=== PATIENT | female | born 1975 ===

== ENCOUNTER 2017-09-04 10:02 | Emergency (ER) | payer OTHER ==
[2017-09-04 10:12] VITALS: O2SAT 100
[2017-09-04] MEDS ORDERED: Sodium Chloride 0.9% 1,000 ML IV ONE (10:42)
--- NOTE | 2017-09-04 10:53 | RAD ---
HISTORY: r/o infiltrate COMPARISON: No prior. TECHNIQUE: Chest PA and lateral FINDINGS: LUNGS: No active pulmonary disease. PLEURA: No significant pleural effusion identified. No pneumothorax apparent. CARDIOVASCULAR: Normal. OSSEOUS STRUCTURES: No significant abnormalities. VISUALIZED UPPER ABDOMEN: Normal. OTHER FINDINGS: None. IMPRESSION: No active disease.
[2017-09-04] MEDS ORDERED: Sodium Chloride 0.9% 1,000 ML ONE (11:18)
[2017-09-04 11:22] LABS: SQUAMOUS EPITHIAL 1 /hpf (0-5); URINE BILIRUBIN NEGATIVE (NEGATIVE); URINE BLOOD NEGATIVE (NEGATIVE); URINE CLARITY Clear (Clear); URINE COLOR Yellow (YELLOW); URINE GLUCOSE (UA) NORMAL (Normal); URINE LEUKOCYTE ESTERASE NEG Leu/uL (Negative); URINE PROTEIN NEGATIVE (NEGATIVE); URINE UROBILINOGEN NORMAL mg/dL (0.2-1.0)
[2017-09-04 11:24] LABS: BASO % 0.5 % (0.0-2.0); EOS # 0.4 K/uL (0.0-0.7); EOS % 5.6 % (0.0-4.0); HEMOGLOBIN 12.1 g/dL (11.0-16.0); LYMPH # 2.2 K/uL (1.0-4.3); LYMPH % 33.4 % (20.0-40.0); MEAN CELL VOLUME 91.2 fL (81.0-99.0); MEAN CORPUSCULAR HEMOGLOBIN 30.2 pg (27.0-31.0); MEAN CORPUSCULAR HGB CONC 33.1 g/dL (33.0-37.0); MEAN PLATELET VOLUME 9.3 fL (7.2-11.7); MONO # 0.8 K/uL (0.0-0.8); NEUT # 3.1 K/uL (1.8-7.0); NEUT % 47.5 % (50.0-75.0); NRBC % 0.1 % (0.0-2.0); RBC 4.02 Mil/uL (3.80-5.20); WHITE BLOOD COUNT 6.5 K/uL (4.8-10.8)
[2017-09-04 11:33] LABS: ALB/GLOB RATIO 1.1 (1.0-2.1); ALBUMIN 3.7 g/dL (3.5-5.0); ALT/SGPT 18 U/L (9-52); AST/SGOT 22 U/L (14-36); BLOOD UREA NITROGEN 12 mg/dL (7-17); CALCIUM 8.4 mg/dl (8.6-10.4); GFR AFRICAN-AMERICAN > 60; GFR NON-AFRICAN AMERICAN > 60
[2017-09-04 12:26] VITALS: BP 110/76; PULSE 77; RESP 17; TEMP 97.7
--- NOTE | 2017-09-04 13:43 | C.PDOC ---
History Of Present Illness 42 y/o female presents to ED with complaints of dry cough consistent with sharp chest pain "for couple of days". Patient reports mild dizziness and denies fever , neck stiffness, headache, sob, nausea, vomiting or any other complaints at this time. Chief Complaint (Nursing): Cough, Cold, Congestion History Per: Patient History/Exam Limitations: no limitations Onset/Duration Of Symptoms: Days Current Symptoms Are (Timing): Still Present Past Medical History Reviewed: Historical Data, Nursing Documentation, Vital Signs Vital Signs: Last Vital Signs Temp 97.7 F 09/04/17 12:21 Pulse 77 09/04/17 12:21 Resp 17 09/04/17 12:21 BP 110/76 09/04/17 12:21 Pulse Ox 100 09/04/17 13:49 - Medical History PMH: No Chronic Diseases Surgical History: No Surg Hx Family History: States: No Known Family Hx - Social History Hx Alcohol Use: No Hx Substance Use: No - Immunization History Hx Tetanus Toxoid Vaccination: No Hx Influenza Vaccination: No Hx Pneumococcal Vaccination: No Review Of Systems Constitutional: Negative for: Fever, Chills Cardiovascular: Positive for: Chest Pain Respiratory: Positive for: Cough. Negative for: Shortness of Breath Gastrointestinal: Negative for: Nausea, Vomiting Physical Exam - Physical Exam Appears: Non-toxic, No Acute Distress Skin: Normal Color, Warm, Dry, No Rash Head: Atraumatic, Normacephalic Eye(s): bilateral: Normal Inspection Throat: Normal, No Erythema, No Exudate Chest: Symmetrical Cardiovascular: Rhythm Regular Respiratory: Normal Breath Sounds, No Rales, No Rhonchi, No Wheezing Gastrointestinal/Abdominal: Soft, No Tenderness, No Guarding, No Rebound Extremity: Normal ROM, No Pedal Edema, Capillary Refill (<2 seconds) Neurological/Psych: Oriented x3, Normal Speech ED Course And Treatment - Laboratory Results Result Diagrams: 09/04/17 11:15 09/04/17 11:15 ECG: Interpreted By Me, Viewed By Me ECG Rhythm: Sinus Rhythm, R BBB (incomplete) Rate From EC (bpm) O2 Sat by Pulse Oximetry: 100 (RA) Pulse Ox Interpretation: Normal Progress Note: On re evaluation patient feels better, d/c with prescriptions and follow up with clinic. Disposition - Disposition Referrals: [facility] [Outside] [facility] [Outside] Disposition: HOME/ ROUTINE Disposition Time: 11:40 Condition: GOOD Additional Instructions: Thank you for letting us take care of you today. The emergency medical care you received today was directed at your acute symptoms. If you were prescribed any medication, please fill it and take as directed. It may take several days for your symptoms to resolve. Return to the Emergency Department if your symptoms worsen, do not improve, or if you have any other problems. Please contact your doctor or call one of the physicians/clinics you have been referred to that are listed on the Patient Visit Information form that is included in your discharge packet. Bring any paperwork you were given at discharge with you along with any medications you are taking to your follow up visit. Our treatment cannot replace ongoing medical care by a primary care provider (PCP) outside of the emergency department. Thank you for allowing the [facility] team to be part of your care today. Take all your medication as prescribed everyday. Follow up with the clinic in 2-3 days for re-evaluation and further management. Scott por dejarnos atenderlo hoy. La atencin mdica de emergencia que recibi hoy estaba dirigida a mayuri sntomas agudos. Si le prescribieron algn medicamento, llnelo y tome segn las indicaciones. Mayuri sntomas pueden tardar varios wellington en resolverse. Regrese al Departamento de Emergencia si mayuri s ntomas empeoran, no mejoran o si tiene algn otro problema. Comunquese con fallon mdico o llame a maximo de los mdicos / clnicas a los que monterroso sido referido que figura en el formulario de Informacin de visita del paciente que se incluye en fallon paquete de trevon. Traiga todos los documentos que recibi al momento del trevon junto con los medicamentos que est tomando en fallon visita de seguimiento. Nuestro tratamiento no puede reemplazar la atencin mdica en curso por parte de un proveedor de atencin primaria (PCP) fuera del departamento de emergencias. Scott por permitir que el equipo de [facility] sea parte de fallon cuidado hoy. [place] todos mayuri medicamentos segn lo prescrito todos los wellington. Margaret un seguimiento con la clnica en 2-3 wellington para julio nueva evaluacin y ms administracin. Prescriptions: Meclizine [Meclizine*] 25 mg PO Q6 PRN #20 tab PRN Reason: Dizziness Instructions: Vertigo (a Type of Dizziness) (DC), Upper Respiratory Infection ( ED) Forms: Gen Discharge Inst Bulgarian Print Language: CAMBODIAN - Clinical Impression Clinical Impression: Viral disease - Scribe Statement The provider has reviewed the documentation as recorded by the Scribe Jazlyn West All medical record entries made by the Scribe were at my direction and personally dictated by me. I have reviewed the chart and agree that the record accurately reflects my personal performance of the history, physical exam, medical decision making, and the department course for this patient. I have also personally directed, reviewed, and agree with the discharge instructions and disposition.
--- NOTE | 2017-09-07 10:44 | CARD ---
APPROVED REPORT EKG Measurement Heart [id number] <Conclusion> Normal sinus rhythm Left axis deviation Incomplete right bundle branch block Abnormal ECG
== END 2017-09-04 13:00 | disposition home or self-care (01) ==
LOC: C.ER 10:02
DX: B34.9 Viral infection, unspecified (principal)
CPT/HCPCS: 71046; 80053; 81001; 84484; 85025; 87086; 93005; 96361; 96374; 99285; J2765; J7040

== ENCOUNTER 2017-12-02 11:23 | Emergency (ER) | payer OTHER ==
[2017-12-02 11:34] VITALS: BP 118/76; PULSE 81; RESP 20; TEMP 98; O2SAT 100
[2017-12-02] MEDS ORDERED: Tdap Vaccine 0.5 ml Vial (10-64 yrs) IM ONE ×2 (11:49→11:57)
[2017-12-02] MEDS ORDERED: Lidocaine 1% Inj (20ml) INFIL ONE (11:49)
[2017-12-02] MEDS ORDERED: Bacitracin 500 Units/gm Oint Foilpak UD TOP ONE (11:50)
[2017-12-02] MEDS ORDERED: Bacitracin 500 Units/gm Oint Foilpak UD ONE (11:56)
[2017-12-02] MEDS ORDERED: Lidocaine Hydrochloride 10 ML INJ ONE (11:56)
--- NOTE | 2017-12-02 13:15 | C.PDOC ---
History Of Present Illness 42yo female, comes to ER for evaluation of a laceration to her left palm, sustained while she was attempting to cut into a thick skinned melon or squash. Patient states she is unsure of her tetanus vaccination status. Otherwise, she denies any numbness, tingling, other injuries, difficulty in moving her fingers. Time Seen by Provider: 12/02/17 11:44 Chief Complaint (Nursing): Abnormal Skin Integrity History Per: Patient History/Exam Limitations: no limitations Onset/Duration Of Symptoms: Hrs Current Symptoms Are (Timing): Still Present Location Of Injury: Left: Hand, Anterior: Hand Quality Of Symptoms: Painful Additional History Per: Patient Past Medical History Reviewed: Historical Data, Nursing Documentation, Vital Signs Vital Signs: Last Vital Signs Temp 98 F 12/02/17 11:32 Pulse 81 12/02/17 11:32 Resp 20 12/02/17 11:32 BP 118/76 12/02/17 11:32 Pulse Ox 100 12/02/17 15:00 - Medical History PMH: No Chronic Diseases Surgical History: No Surg Hx Family History: States: No Known Family Hx - Social History Hx Alcohol Use: No Hx Substance Use: No - Immunization History Hx Tetanus Toxoid Vaccination: No Hx Influenza Vaccination: No Hx Pneumococcal Vaccination: No Review Of Systems Musculoskeletal: Positive for: Hand Pain (laceration to left hypothenar area) Neurological: Negative for: Weakness, Numbness Physical Exam - Physical Exam Appears: Non-toxic Skin: Normal Color Head: Normacephalic Eye(s): bilateral: Normal Inspection Neck: Supple Chest: Symmetrical Cardiovascular: Rhythm Regular Respiratory: Normal Breath Sounds Extremity: Normal ROM (FROM of all digits on left hand), Capillary Refill (< 2 seconds all digits on left hand), Other (left hypothenar eminence with a 5cm curved laceration; +active bleeding, + swelling +hematoma.) Neurological/Psych: Oriented x3, Normal Motor, Normal Sensation ED Course And Treatment O2 Sat by Pulse Oximetry: 100 (RA) Pulse Ox Interpretation: Normal Laceration - Laceration Repair left hand Wound Length (In cm): 5 Description Of Wound: Linear, Irregular Anesthesia: Lidocaine 1% Wound Examination: Irrigated With Saline, No FB With Wound Exploration, No Tendon Injury With Wound Exploration Wound Closure: Suture (#13) Suture Technique And Material Used: Interrupted (4-0 ethilon) Wound Complexity: Intermediate Medical Decision Making Medical Decision Making: Impression: Laceration Plan: -- Laceration repaired using simple interrupted sutures. -- Tetanus booster 0.5ml IM -- Kefflex 500mg PO -- Tylenol 650 mg PO Wound cleaned and bacitracin applied; sterile dressing applied and patient placed in a sling. Patient instructed on wound care and is stable upon discharge home. Disposition Counseled Patient/Family Regarding: Diagnosis, Need For Followup, Rx Given - Disposition Disposition: HOME/ ROUTINE Disposition Time: 13:16 Condition: IMPROVED Additional Instructions: Por favor, mantenga la mano elevada siempre que sea posible. Lebam Tylenol para el dolor y complete antibiticos. El fro aparecePlease keep hand elevated whenever possible. Take Tylenol for pain and complete antibioitcs. Cold ocmpresses several tinmes a day over bandages. Change bandage tomorrowe- wash and dry gently with soap; apply bacitracin. Return to ER for any signs of infection such as redness, worse swelling, pus from wound or other concerns. Suture removal in 10 days. varias veces al da sobre los vendajes. Cambie el vendaje para el pelo; lvelo y squelo suavemente con jabn; aplicar bacitracin. Regrese a la levon de emergencias para detectar cualquier signo de infeccin, lucas enrojecimiento, peor hinchazn, pus de la herida u otras preocupaciones. Eliminacin de sutura en 10 wellington. Prescriptions: Acetaminophen [Tylenol 325mg tab] 650 mg PO Q4 #50 tab Bacitracin OINT 1 applic TOP BID #1 tube Cephalexin [cephalexin] 500 mg PO Q6 #28 cap Instructions: Laceration Repair With Stitches (DC) Forms: Gen Discharge Inst Yi, [employer] (Yi) Print Language: POLISH - Clinical Impression Clinical Impression: Laceration of left palm - PA / ROTARY SLICING MACHINE OPERATOR / Resident Statement MD/DO has reviewed & agrees with the documentation as recorded. - Scribe Statement The provider has reviewed the documentation as recorded by the Scribe (Almaz Jenkins) Provider Attestation: All medical record entries made by the Scribe were at my direction and personally dictated by me. I have reviewed the chart and agree that the record accurately reflects my personal performance of the history, physical exam, medical decision making, and the department course for this patient. I have also personally directed, reviewed, and agree with the discharge instructions and disposition.
== END 2017-12-02 13:28 | disposition home or self-care (01) ==
LOC: C.ER 11:23
DX: S61.412A Laceration without foreign body of left hand, initial encounter (principal); W26.0XXA Contact with knife, initial encounter; Y93.G1 Activity, food preparation and clean up; Y92.89 Other specified places as the place of occurrence of the external cause; Z23 Encounter for immunization

== ENCOUNTER 2017-12-11 06:46 | Emergency (ER) | payer OTHER ==
[2017-12-11 07:01] VITALS: BP 110/71; PULSE 72; RESP 20; O2SAT 100
--- NOTE | 2017-12-11 07:11 | C.PDOC ---
History Of Present Illness 42 yo female no prior hx , presents for eval of left palm wound. pt sustained lac 10 days. ago. pt states she was unsure if wound is infected. pt states she has been not taking antibiotcs as prescribed, only "taking when she feels like it". pt unsure if any drainage. pt states she feels mild pain to area. all info obtained via organ fixer kaden bedside. she reports subjective fever Time Seen by Provider: 12/11/17 07:08 Chief Complaint (Nursing): Abnormal Skin Integrity Past Medical History Reviewed: Historical Data, Nursing Documentation, Vital Signs Vital Signs: Last Vital Signs Temp 98.0 F 12/11/17 08:13 Pulse 72 12/11/17 06:54 Resp 20 12/11/17 06:54 BP 110/71 12/11/17 06:54 Pulse Ox 100 12/11/17 07:38 Family History: States: Unknown Family Hx - Social History Hx Alcohol Use: No Hx Substance Use: No - Immunization History Hx Tetanus Toxoid Vaccination: No Hx Influenza Vaccination: No Hx Pneumococcal Vaccination: No Review Of Systems Skin: Positive for: Other (laceration) Physical Exam - Physical Exam Appears: Well, No Acute Distress Skin: Normal Color, Warm, Dry Eye(s): bilateral: Normal Inspection, PERRL, EOMI Nose: Normal Throat: Normal Neck: Normal Cardiovascular: Rhythm Regular Respiratory: Normal Breath Sounds Gastrointestinal/Abdominal: Normal Exam Back: Normal Inspection Extremity: Normal ROM, Other ((+)left hand laceration, partially healed, no purlent discharge. minimal surrounding erythema <1-2 mm) ED Course And Treatment O2 Sat by Pulse Oximetry: 100 Medical Decision Making Medical Decision Making: sutures removed. area cleaned. minimal surrounding erythema ?early cellultis vs healing lac. pt reports non compliance with antibiotics regiemtn. discussed with pt. pt prefers cont outpt treatment. advised strct return precautions Disposition - Disposition Referrals: [facility] [Outside] [facility] [Outside] Patrick Moore MD [Staff Provider] - Disposition: HOME/ ROUTINE Disposition Time: 07:36 Condition: STABLE Additional Instructions: please take your antibiotics as prescrbied. return to er with any worsening symptoms or concerns. please see specialist. Instructions: Laceration Repair, Cellulitis (Skin Infection), Adult (DC) Forms: [employer] (Italian) Print Language: HUNGARIAN - Clinical Impression Clinical Impression: Visit for wound check
[2017-12-11 08:13] VITALS: TEMP 98
== END 2017-12-11 08:13 | disposition home or self-care (01) ==
LOC: C.ER 06:46
DX: Z51.89 Encounter for other specified aftercare (principal)

== ENCOUNTER 2018-08-17 09:03 | Outpatient (CLI) | payer OTHER | END 2018-08-17 09:04 | disposition home or self-care (01) | LOC: C.MAMMO 09:03 ==

== ENCOUNTER 2018-09-23 14:13 | Emergency (ER) | payer OTHER ==
[2018-09-23 14:34] VITALS: TEMP 97.9; O2SAT 98
[2018-09-23] MEDS ORDERED: Naproxen 550 mg Tab PO STA (16:31)
[2018-09-23] MEDS ORDERED: Naproxen 550 mg Tab PO ONE (16:49)
--- NOTE | 2018-09-23 17:26 | C.PDOC ---
History Of Present Illness Patient is a 43 year old female who presents to the ED c/o intermittent low back pain for the past 2 months but has been worsening for the past week. She rates pain as 8/10 and states it is mainly left sided and radiates down left leg. Patient states that she has been taking Dicloplex forte, which typically helps her pain, but it was not relieving pain today. Patient is also c/o right shoulder pain for 3 days and her states she has been doing heavy lifting and a lot of cooking, which involves stirring, which he believes might be the cause of shoulder pain. Patient denies any numbness weakness, hx of sciatica, trauma, injuries, weakness. Chief Complaint (Nursing): Back Pain History Per: Patient, Family () History/Exam Limitations: no limitations Onset/Duration Of Symptoms: Days (2 months, worse over past week) Current Symptoms Are (Timing): Still Present Quality Of Discomfort: "Pain" Pain Scale Rating Of: 8 Recent travel outside of the [place]: No Additional History Per: Patient, Family Past Medical History Reviewed: Historical Data, Nursing Documentation, Vital Signs Vital Signs: Last Vital Signs Temp 97.9 F 09/23/18 14:32 Pulse 69 09/23/18 14:32 Resp 20 09/23/18 14:32 BP 102/65 09/23/18 14:32 Pulse Ox 98 09/23/18 14:32 Primary Care Provider: Non [facility] Provider, - Medical History PMH: No Chronic Diseases Surgical History: No Surg Hx Family History: States: Unknown Family Hx - Social History Hx Tobacco Use: No Hx Alcohol Use: No Hx Substance Use: No - Immunization History Hx Tetanus Toxoid Vaccination: No Hx Influenza Vaccination: No Hx Pneumococcal Vaccination: No Review Of Systems Constitutional: Negative for: Fever, Chills Cardiovascular: Negative for: Chest Pain Respiratory: Negative for: Shortness of Breath Gastrointestinal: Negative for: Nausea, Vomiting Genitourinary: Negative for: Incontinence Musculoskeletal: Positive for: Back Pain (left-sided low back pain with radia tion down left leg) Neurological: Negative for: Weakness, Numbness Physical Exam - Physical Exam Appears: Non-toxic, No Acute Distress Skin: Warm, Dry Head: Atraumatic, Normacephalic Eye(s): bilateral: PERRL, EOMI Neck: Normal ROM Chest: Symmetrical, No Deformity Cardiovascular: Rhythm Regular Respiratory: Normal Breath Sounds, No Accessory Muscle Use Gastrointestinal/Abdominal: Soft Back: No Decreased ROM, Other (tenderness to palpation of lumbar spine, left greater than right ) Extremity: Normal ROM (Full rom of left shoulder. Full rom of hips, knees, and feet), Tenderness (pain with ROM of left shoulder ), Capillary Refill (less than 2 seconds) Pulses: Left Dorsalis Pedis: Normal, Right Dorsalis Pedis: Normal Neurological/Psych: Oriented x3 ED Course And Treatment O2 Sat by Pulse Oximetry: 98 (on RA) Pulse Ox Interpretation: Normal - Other Rad Xray LS Spine X-Ray: Viewed By Me, Read By Radiologist Interpretation: Date of service: 09/23/2018. PROCEDURE: Radiographs of the Lumbar Spine. HISTORY: Pain. No history of recent/ related trauma provided. COMPARISON: No prior. TECHNIQUE: 5 views obtained. FINDINGS: BONES: Normal alignment. No listhesis. No fracture. DISC SPACES: Unremarkable. OTHER FINDINGS: Mild scoliosis without secondary degenerative change. IMPRESSION: No significant or acute findings to account for/ related to the clinical presentation. Medical Decision Making Medical Decision Making: Plan: Flexeril 10mg PO Naproxen 550mg PO Xray LS Spine ordered and reviewed- unremarkable Reassessment: patient is resting comfortably and notes improvement in pain patient advised to continue Naproxen and Flexeril as instructed Rest and Ice Follow up in Clinic in 1-2 days for further assessment Return to the ED if symptoms worsen Patient verbalizes understanding and is in agreement with plan. Patient is stable for discharge. Disposition Counseled Patient/Family Regarding: Studies Performed, Diagnosis, Need For Followup, Rx Given - Disposition Referrals: Orthopedic Clinic at [Outside] Disposition: HOME/ ROUTINE Disposition Time: 17:55 Condition: STABLE Additional Instructions: Continue Naproxen and Flexeril as instructed Rest and Ice Follow up in Clinic in 1-2 days for further assessment Return to the ED if symptoms worsen Prescriptions: Cyclobenzaprine [Flexeril] 10 mg PO TID PRN #15 tab PRN Reason: Muscle Spasm Naproxen [Naprosyn] 500 mg PO BID #30 tablet Instructions: Sciatica, Muscle Strain, Low Back Pain (DC) Forms: [employer] (Dominican) Print Language: TELUGU - Clinical Impression Clinical Impression: Low back pain, Shoulder pain - PA / TRADING FLOOR OPERATOR / Resident Statement MD/DO has reviewed & agrees with the documentation as recorded. - Scribe Statement The provider has reviewed the documentation as recorded by the Scribrobbi Groves All medical record entries made by the Randolph were at my direction and personally dictated by me. I have reviewed the chart and agree that the record accurately reflects my personal performance of the history, physical exam, medical decision making, and the department course for this patient. I have also personally directed, reviewed, and agree with the discharge instructions and disposition.
[2018-09-23 18:13] VITALS: BP 108/69; PULSE 70; RESP 18
== END 2018-09-23 18:13 | disposition home or self-care (01) ==
LOC: C.ER 14:13
DX: M54.5 Low back pain (principal); M25.511 Pain in right shoulder